=== PATIENT | female | born 1965 | race African-American/Black ===

== ENCOUNTER → 2016-09-05 | Day surgery (SDC) | payer OTHER ==
[~2016-09-05] MED LIST: LIDOCAINE HCL 1% 20ML VIAL (Pyxis) INJ ONE; SODIUM BICARBONATE 4.2% 5 MEQ/10 ML DISP.SYRIN IV ONE
== END | disposition home or self-care (01) ==
LOC: RAD 08:36
PROVIDERS: ATTEND Internal Medicine
DX: N64.89 Other specified disorders of breast (principal)
CPT/HCPCS: 19083; 88305; A4648; J3490

== ENCOUNTER 2020-07-16 19:36 | Emergency (ER) | payer MEDICAID ==
[~2020-07-16] VITALS: Ht 165.1 cm; Wt 79.0 kg
[2020-07-16] MEDS ORDERED: SODIUM CHLORIDE 0.9% 1,000 ML IV ONE (20:30)
[2020-07-16 20:44] LABS: BASOPHILS % 2.8 % (0.0-2.0); EOSINOPHILS % 6.6 % (0.0-5.0); HEMATOCRIT. 36.6 % (36.0-48.0); HEMOGLOBIN. 12.3 g/dL (12.0-16.0); LYMPHOCYTES % 42.5 % (20.0-50.0); MEAN CORPUSCULAR HEMOGLOBIN 27.7 pg (28.0-32.0); MEAN CORPUSCULAR VOLUME 82.4 fL (81.0-99.0); MEAN PLATELET VOLUME 7.8 fl (7.4-10.4); NEUTROPHILS % 42.1 % (40.0-76.0); PLATELET 291 x1000/uL (130-400); RED BLOOD CELL COUNT 4.44 mill/uL (4.2-5.4); RED CELL DISTRIBUTION WIDTH 19.3 % (11.6-14.6)
[2020-07-16 20:50] LABS: CHLORIDE 107 mEq/L (98-107)
[2020-07-16] MEDS ORDERED: POTASSIUM CHLORIDE 20MEQ TABLET SR PO ONE (21:15)
[2020-07-16 21:42] VITALS: BP 105/57
== END 2020-07-16 22:25 | disposition home or self-care (01) ==
LOC: ER 19:36
DX: E87.6 Hypokalemia (principal); R53.1 Weakness; J45.909 Unspecified asthma, uncomplicated; I10 Essential (primary) hypertension; F17.290 Nicotine dependence, other tobacco product, uncomplicated; Z88.0 Allergy status to penicillin; Z88.5 Allergy status to narcotic agent
CPT/HCPCS: 36415; 80053; 85025; 93005; 96360; 99284; J7030

== ENCOUNTER 2020-07-20 15:01 | Emergency (ER) | payer MEDICAID ==
[~2020-07-20] VITALS: Ht 170.2 cm; Wt 75.0 kg
[2020-07-20 15:47] VITALS: BP 153/107
== END 2020-07-20 18:34 | disposition left against medical advice (07) ==
LOC: ER 15:01
DX: Z53.21 Procedure and treatment not carried out due to patient leaving prior to being seen by health care provider (principal); I49.9 Cardiac arrhythmia, unspecified
CPT/HCPCS: 93005

== ENCOUNTER 2020-07-29 02:30 | Emergency (ER) | payer MEDICAID ==
[~2020-07-29] VITALS: Ht 165.1 cm; Wt 78.0 kg
[2020-07-29] MEDS ORDERED: ACETAMINOPHEN 325MG TABLET PO STA (03:20)
[2020-07-29 03:40] LABS: CHLORIDE 109 mEq/L (98-107)
[2020-07-29 04:13] LABS: BASOPHILS % 2.4 % (0.0-2.0); EOSINOPHILS % 6.3 % (0.0-5.0); HEMATOCRIT. 36.1 % (36.0-48.0); HEMOGLOBIN. 12.2 g/dL (12.0-16.0); LYMPHOCYTES % 31.2 % (20.0-50.0); MEAN CORPUSCULAR HEMOGLOBIN 28.4 pg (28.0-32.0); MEAN CORPUSCULAR VOLUME 84.1 fL (81.0-99.0); MEAN PLATELET VOLUME 7.8 fl (7.4-10.4); MONOCYTES % 7.3 % (2.0-8.0); NEUTROPHILS % 52.8 % (40.0-76.0); PLATELET 234 x1000/uL (130-400); RED CELL DISTRIBUTION WIDTH 19.6 % (11.6-14.6)
[2020-07-29] MEDS ORDERED: BACL-141 MT (05:47)
[2020-07-29] MEDS ORDERED: IBUP-2028 MT (05:47)
[2020-07-29 06:12] VITALS: BP 117/87
== END 2020-07-29 06:24 | disposition home or self-care (01) ==
LOC: ER 02:30
DX: R51.9 Headache, unspecified (principal); E78.00 Pure hypercholesterolemia, unspecified; I10 Essential (primary) hypertension; Y90.9 Presence of alcohol in blood, level not specified; F10.20 Alcohol dependence, uncomplicated; Z88.0 Allergy status to penicillin; Z88.5 Allergy status to narcotic agent; F17.210 Nicotine dependence, cigarettes, uncomplicated; Z71.6 Tobacco abuse counseling
CPT/HCPCS: 36415; 70450; 80048; 85025; 85651; 93005; 99285; 99406; Z7610

== ENCOUNTER 2021-11-04 10:39 | Emergency (ER) | payer MEDICAID ==
[~2021-11-04 10:39] MED LIST changes: +BACL-141 MT; +IBUP-2028 MT; -LIDOCAINE HCL 1% 20ML VIAL (Pyxis) INJ ONE; -SODIUM BICARBONATE 4.2% 5 MEQ/10 ML DISP.SYRIN IV ONE
== END 2021-11-04 12:07 | disposition left against medical advice (07) ==
LOC: ER 10:39
DX: R07.89 Other chest pain (principal); I49.9 Cardiac arrhythmia, unspecified; Z53.21 Procedure and treatment not carried out due to patient leaving prior to being seen by health care provider
CPT/HCPCS: 93005

== ENCOUNTER 2021-11-15 13:02 | Emergency (ER) | payer MEDICAID ==
[~2021-11-15] VITALS: Ht 165.1 cm; Wt 80.0 kg
[2021-11-15 13:05] VITALS: BP 144/99
[2021-11-15] MEDS ORDERED: DOCU-286 MT (14:52)
== END 2021-11-15 15:19 | disposition home or self-care (01) ==
LOC: ER 13:02
DX: K59.00 Constipation, unspecified (principal); I10 Essential (primary) hypertension; E78.00 Pure hypercholesterolemia, unspecified; J45.909 Unspecified asthma, uncomplicated; Z88.0 Allergy status to penicillin; Z88.5 Allergy status to narcotic agent; Z98.890 Other specified postprocedural states
CPT/HCPCS: 99282

== ENCOUNTER 2022-03-22 21:11 | Emergency (ER) | payer MEDICAID, OTHER ==
[~2022-03-22] VITALS: Ht 165.1 cm; Wt 89.0 kg
[~2022-03-22 21:11] MED LIST changes: +DOCU-286 MT
[2022-03-22 23:10] VITALS: BP 149/94
[2022-03-22] MEDS ORDERED: IPRATROPIUM BROMIDE (0.02%) 0.5MG/2.5ML NEB HHN STA (23:18)
[2022-03-22] MEDS ORDERED: ALBUTEROL (0.083%) 2.5MG/3ML NEB HHN STA (23:18)
[2022-03-22] MEDS ORDERED: PREDNISONE 20MG TABLET PO STA (23:18)
[2022-03-23] MEDS ORDERED: ACETAMINOPHEN 325MG TABLET PO ONE (01:15)
[2022-03-23] MEDS ORDERED: IBUPROFEN 400MG TABLET PO ONE (01:15)
[2022-03-23] MEDS ORDERED: ALBU6.7H3 INH (10:04)
[2022-03-23] MEDS ORDERED: LEVO-65 PO (10:04)
[2022-03-23] MEDS ORDERED: P50 PO (10:04)
== END 2022-03-22 23:50 | disposition left against medical advice (07) ==
LOC: ER 21:11
DX: J45.901 Unspecified asthma with (acute) exacerbation (principal); I10 Essential (primary) hypertension; E78.5 Hyperlipidemia, unspecified
CPT/HCPCS: 99281

== ENCOUNTER 2022-03-23 07:13 | Emergency (ER) | payer OTHER ==
[~2022-03-23] VITALS: Ht 167.6 cm; Wt 100.0 kg
[2022-03-23 07:46] VITALS: BP 162/97
[2022-03-23] MEDS ORDERED: METHYLPREDNISOLONE SOD SUCC 125 MG/2 ML VIAL IV STA (07:59)
[2022-03-23] MEDS ORDERED: IPRATROPIUM BROMIDE (0.02%) 0.5MG/2.5ML NEB HHN STA (07:59)
[2022-03-23] MEDS ORDERED: ALBUTEROL (0.083%) 2.5MG/3ML NEB HHN STA (07:59)
[2022-03-23] MEDS ORDERED: ACETAMINOPHEN 325MG TABLET PO ONE (09:15)
[2022-03-23] MEDS ORDERED: LEVO-65 PO (10:04)
[2022-03-23] MEDS ORDERED: P50 PO (10:04)
[2022-03-23] MEDS ORDERED: ALBU6.7H3 INH (10:04)
== END 2022-03-23 10:41 | disposition home or self-care (01) ==
LOC: ER 07:13
DX: J18.9 Pneumonia, unspecified organism (principal); I10 Essential (primary) hypertension; Z20.822 Contact with and (suspected) exposure to COVID-19; J45.909 Unspecified asthma, uncomplicated
CPT/HCPCS: 71045; 87420; 87426; 87804; 93005; 94644; 96374; 99285; J2930; Z7610

== ENCOUNTER 2022-03-25 15:25 | Emergency (ER) | payer OTHER ==
[~2022-03-25] VITALS: Ht 165.1 cm; Wt 91.0 kg
[~2022-03-25 15:25] MED LIST changes: +ALBU6.7H3 INH; +LEVO-65 PO; +P50 PO
[2022-03-25 15:29] VITALS: BP 136/83
== END 2022-03-25 18:58 | disposition left against medical advice (07) ==
LOC: ER 15:25
DX: Z53.21 Procedure and treatment not carried out due to patient leaving prior to being seen by health care provider (principal)

== ENCOUNTER 2022-10-07 08:52 | Emergency (ER) | payer MEDICAID ==
[~2022-10-07] VITALS: Ht 165.1 cm; Wt 73.0 kg
[~2022-10-07 08:52] MED LIST changes: +FAMO-135 MT; -IBUP-2028 MT; -LEVO-65 PO; -P50 PO; +THIA100T72 MT
[2022-10-07 08:55] VITALS: TEMP 98.3; O2SAT 100
[2022-10-07] MEDS ORDERED: ASPIRIN 81MG TABLET PO ONE (09:30)
[2022-10-07] MEDS ORDERED: NITROGLYCERIN 0.4MG TABLET SL SL PRN (09:30)
[2022-10-07 09:54] LABS: BASOPHILS % 1.8 % (0.0-2.0); EOSINOPHILS % 3.5 % (0.0-5.0); HEMATOCRIT. 40.1 % (36.0-48.0); HEMOGLOBIN. 13.4 g/dL (12.0-16.0); LYMPHOCYTES % 27.4 % (20.0-50.0); MEAN CORPUSCULAR HEMOGLOBIN 27.4 pg (28.0-32.0); MEAN CORPUSCULAR VOLUME 81.8 fL (81.0-99.0); MEAN PLATELET VOLUME 7.4 fl (7.4-10.4); MONOCYTES % 4.4 % (2.0-8.0); NEUTROPHILS % 62.9 % (40.0-76.0); PLATELET 276 x1000/uL (130-400); RED CELL DISTRIBUTION WIDTH 18.8 % (11.6-14.6)
[2022-10-07 10:01] LABS: CHLORIDE 110 mEq/L (98-107)
[2022-10-07 10:13] LABS: ETHANOL BLOOD 349 mg/dL (-10)
[2022-10-07 11:28] LABS: *AMPHETAMINES SCREEN URINE NEGATIVE (NEGATIVE); *BARBITURATES SCREEN URINE NEGATIVE (NEGATIVE); *BENZODIAZEPINES SCREEN URINE NEGATIVE (NEGATIVE); *COCAINE SCREEN URINE NEGATIVE (NEGATIVE); CANNABINOID URINE SCREEN NEGATIVE (NEGATIVE); METHADONE URINE SCREEN NEGATIVE (NEGATIVE); OPIATES URINE SCREEN NEGATIVE (NEGATIVE); PHENCYCLIDINE URINE SCREEN NEGATIVE (NEGATIVE)
[2022-10-07 12:06] VITALS: BP 130/80; PULSE 89; RESP 18
== END 2022-10-07 12:08 | disposition home or self-care (01) ==
LOC: ER 08:52
DX: F10.129 Alcohol abuse with intoxication, unspecified (principal); R07.89 Other chest pain; J45.909 Unspecified asthma, uncomplicated; E78.00 Pure hypercholesterolemia, unspecified; I10 Essential (primary) hypertension; Y90.8 Blood alcohol level of 240 mg/100 ml or more
CPT/HCPCS: 80053; 80305; 80320; 83880; 85025; 84484; 36415; 71045; 93005; 99285; Z7610; G0480